=== PATIENT | female | born 1955 | race Caucasian/White ===

== ENCOUNTER 2016-09-26 04:34 | Emergency (ER) | payer MEDICARE ==
[2016-02-02 07:32] VITALS: BMI 24.5
[~2016-09-26 04:34] MED LIST: NORVASC5 MG PO
[2016-09-26 05:17] LABS: BASOPHILS 0.3 % (0.0-2.0); EOSINOPHILS 1.2 % (0-7); HEMATOCRIT 40.6 % (36.0-48.0); HEMOGLOBIN 13.4 g/dL (12-16); IMMATURE GRANULOCYTES 0.3 % (0-5); LYMPHOCYTES 18.7 % (15-50); MCH 29.1 pg (26.0-34.0); MCV 88.3 fL (80.0-100.0); MONOCYTES 8.9 % (2-11); NEUTROPHILS 70.6 % (40-80); PLATELET COUNT 165 10x3/uL (130-400); RDW 13.8 % (11.5-14.5); WBC 7.7 10x3/uL (4.8-10.8)
[2016-09-26 05:27] LABS: APPEARANCE TURBID (CLEAR); BILIRUBIN NEGATIVE (NEGATIVE); COLOR YELLOW (YELLOW); GLUCOSE NEGATIVE (NEGATIVE); KETONE NEGATIVE (NEGATIVE); LEUKOCYTE ESTERASE 2+ (NEGATIVE); NITRITE NEGATIVE (NEGATIVE); PROTEIN 2+ mg/dL (NEGATIVE); SPECIFIC GRAVITY 1.015 (1.005-1.020); UROBILINOGEN NORMAL (NORMAL)
[2016-09-26 05:31] LABS: BACTERIA MODERATE /hpf (NONE SEEN); RED CELLS - URINE >50 /hpf (0-5); WHITE CELLS - URINE >50 /hpf (0-5)
[2016-09-26 05:32] LABS: BILIRUBIN - TOTAL 0.5 mg/dL (0.2-1.3); CALCIUM 9.1 mg/dL (8.5-10.1); CARBON DIOXIDE 26.6 mmol/L (21.0-32.0); CREATININE - SERUM 1.1 mg/dL (0.6-1.3); POTASSIUM - SERUM 3.6 mmol/L (3.5-5.1); PROTEIN - SERUM 7.6 g/dL (6.4-8.2)
[2016-09-26 06:01] LABS: HCG SERUM NEGATIVE (NEGATIVE)
== END 2016-09-26 06:30 | disposition home or self-care (01) ==
LOC: D.ER 04:34
PROVIDERS: Emergency Medicine
DX: N39.0 Urinary tract infection, site not specified (principal); I10 Essential (primary) hypertension

== ENCOUNTER → 2016-09-26 13:00 | Outpatient (CLI) | payer MEDICARE ==
[2016-02-02 07:32] VITALS: BMI 24.5
== END | disposition home or self-care (01) ==
LOC: D.CT 13:00
DX: R93.8 Abnormal findings on diagnostic imaging of other specified body structures (principal)

== ENCOUNTER → 2016-12-14 10:59 | Outpatient (CLI) | payer MEDICARE ==
[2016-02-02 07:32] VITALS: BMI 24.5
== END | disposition home or self-care (01) ==
LOC: D.US 10:59
DX: R31.9 Hematuria, unspecified (principal)

== ENCOUNTER 2017-12-07 06:23 | Emergency (ER) | payer MEDICARE ==
[~2017-12-07] VITALS: Ht 167.6 cm; Wt 65.9 kg
[2017-12-07 06:30] VITALS: BP 159/86; Ht 167.6 cm; Wt 65.9 kg
[2017-12-07] MEDS ORDERED: BENAZEPRIL HCL10 MG PO (06:31)
[2017-12-07 07:38] LABS: BASOPHILS 0.1 % (0-2); EOSINOPHILS 0.3 % (0-7); HEMATOCRIT 42.9 % (36.0-48.0); HEMOGLOBIN 14.4 g/dL (12-16); IMMATURE GRANULOCYTES 0.1 % (0-5); LYMPHOCYTES 15.5 % (15-50); MCH 29.5 pg (26.0-34.0); MCHC 33.6 g/dL (31.0-37.0); MCV 87.9 fL (80.0-100.0); MEAN PLATELET VOLUME 9.5 fL (7.4-10.4); MONOCYTES 3.7 % (2-11); NEUTROPHILS 80.3 % (40-80); PLATELET COUNT 155 10x3/uL (130-400); RBC 4.88 10x6/uL (4.00-5.40); RDW 13.8 % (11.5-14.5); WBC 6.8 10x3/uL (4.8-10.8)
[2017-12-07 07:58] LABS: ALBUMIN 4.5 g/dL (3.4-5.0); ALKALINE PHOSPHATASE 68 U/L (46-116); ALT (SGPT) 15 U/L (10-68); BILIRUBIN - TOTAL 0.52 mg/dL (0.2-1.3); CALC OSMOLALITY 280 mosm/kg (275-300); CALCIUM 9.6 mg/dL (8.5-10.1); CHLORIDE - SERUM 103 mmol/L (98-107); CREATININE - SERUM 0.9 mg/dL (0.6-1.3); GLUCOSE 132 mg/dL (74-106); PROTEIN - SERUM 8.1 g/dL (6.4-8.2); SODIUM 139 mmol/L (136-145); UREA NITROGEN 16 mg/dL (7-18); eGFR NON AFRICAN AMERICAN 67 mL/min (90-120)
[2017-12-07 08:10] LABS: CREATINE KINASE 62 UL (21-215); TROPONIN-I < 0.017 ng/mL (0.000-0.060)
[2017-12-07] MEDS ORDERED: ZOFRAN ODT4 MG/UDTAB PO (09:21)
[2017-12-07] MEDS ORDERED: MECLIZINE HCL25 MG PO (09:21)
== END 2017-12-07 10:15 | disposition home or self-care (01) ==
LOC: D.ER 06:23
PROVIDERS: Family Medicine
DX: R42 Dizziness and giddiness (principal); R55 Syncope and collapse; R11.10 Vomiting, unspecified